=== PATIENT | male | born 1970 | race Caucasian/White ===

== ENCOUNTER 2017-05-13 11:19 | Inpatient (IN) | payer SELFPAY ==
[~2017-05-13] VITALS: Ht 167.6 cm; Wt 110.1 kg
[2017-05-13] MEDS ORDERED: DiphenhydrAMINE HCL 50 MG/ML VIAL IM ONE ×2 (11:30→18:45)
[2017-05-13] MEDS ORDERED: HALOPERIDOL LACTATE 5 MG/ML VIAL IM ONE ×2 (11:30→18:45)
[2017-05-13] MEDS ORDERED: LORazepam 2 MG/ML VIAL IM ONE ×3 (11:30→18:45)
[2017-05-13 12:27] LABS: GLUCOSE,POINT OF CARE 372 MG/DL (70-110)
[2017-05-13 13:04] LABS: BASOPHILS # (AUTO) 0.01 K/uL (0.00-0.20); BASOPHILS % (AUTO) 0.1 % (0.0-2.0); EOSINOPHILS # (AUTO) 0.02 K/uL (0.00-0.70); EOSINOPHILS % (AUTO) 0.09 % (1.0-6.0); HEMOGLOBIN 14.4 g/dL (13.5-17.5); LYMPHOCYTES # (AUTO) 0.7 K/uL (1.0-4.8); LYMPHOCYTES % (AUTO) 3.8 % (22.0-44.0); MEAN CORPUSCULAR HGB CONC 34.2 G/dL (31.0-37.0); MEAN CORPUSCULAR VOLUME 85 fL (80-100); MONOCYTES # (AUTO) 0.4 K/uL (0.1-1.0); MONOCYTES % (AUTO) 2.4 % (2.0-9.0); NEUTROPHILS # (AUTO) 16.6 K/uL (1.8-7.7); PLATELET COUNT (AUTO) 266 K/uL (150-450); RED BLOOD CELL COUNT(AUTO) 4.95 MIL/uL (4.50-5.90); RED CELL DISTRIBUTION WIDTH 14.1 % (11.5-14.5); WHITE BLOOD COUNT (AUTO) 17.7 K/uL (4.5-11.0)
[2017-05-13 13:05] LABS: NEUTROPHILS % (AUTO) 93.7 % (40.0-70.0)
[2017-05-13 13:11] LABS: ANION GAP 12 mmol/L (8-16); CALCIUM, TOTAL 8.9 mg/dL (8.8-10.5); CARBON DIOXIDE 23 mmol/L (22-29); CHLORIDE 100 mmol/L (98-107); CREATININE 1.07 mg/dL (0.60-1.30); GLOMERULAR FILTR. RATE CALC > 60 mL/min (>60); POTASSIUM 3.9 mmol/L (3.5-5.1); SODIUM SERUM 135 mmol/L (136-145); UREA NITROGEN, BLOOD 13 mg/dL (7-18)
[2017-05-13 13:17] LABS: ALANINE AMINOTRANSFERASE 28 U/L (12-78); ALBUMIN 3.5 g/dL (3.4-5.0); ASPARTATE AMINOTRANSFERASE 26 U/L (15-37); BILIRUBIN,TOTAL 0.9 mg/dL (0.1-1.0); TOTAL PROTEIN, SERUM 7.8 g/dL (6.4-8.2)
[2017-05-13] MEDS: ACETAMINOPHEN 325 MG TABLET PO ONE ×2 (13:53→14:00)
[2017-05-13 19:02] LABS: GLUCOSE,POINT OF CARE 244 MG/DL (70-110)
[2017-05-13 20:15] VITALS: BP 145/114
[2017-05-13] MEDS ORDERED: GLUCAGON,HUMAN RECOMBINANT 1 MG VIAL IM PRN (20:30)
[2017-05-13] MEDS ORDERED: PNEUMOCOCCAL VACCINE POLYVALENT 0.5 ML VIAL [PPSV23] IM ONE (21:00)
[2017-05-13] MEDS: CloNIDine HCL 0.1 MG TABLET PO PRN (21:03)
[2017-05-13] MEDS: INSULIN ASPART 100 UNITS/ML SQ PRN (21:04)
[2017-05-13 21:33] VITALS: BP 145/79
[2017-05-13 21:42] LABS: GLUCOSE COMMENT 1 Received Meds; GLUCOSE,POINT OF CARE 232 MG/DL (70-110)
[2017-05-14 06:32] LABS: GLUCOSE,POINT OF CARE 264 MG/DL (70-110)
[2017-05-14] MEDS: INSULIN ASPART 100 UNITS/ML SQ PRN ×4 (06:34→20:59)
[2017-05-14 06:55] VITALS: BP 164/90
[2017-05-14] MEDS: CloNIDine HCL 0.1 MG TABLET PO PRN ×2 (06:58→16:29)
[2017-05-14 08:00] VITALS: BP 141/84
[2017-05-14 11:07] LABS: GLUCOSE,POINT OF CARE 242 MG/DL (70-110)
[2017-05-14 16:28] VITALS: BP 158/99
[2017-05-14 17:30] VITALS: BP 157/95
[2017-05-14] MEDS ORDERED: AmLODIPine BESYLATE 5 MG TABLET PO ONE (19:30)
[2017-05-14] MEDS: RisperiDONE 0.5 MG TABLET PO SCH (20:30)
[2017-05-14 20:50] VITALS: BP 148/88
[2017-05-15 06:19] VITALS: BP 158/98
[2017-05-15] MEDS: CloNIDine HCL 0.1 MG TABLET PO PRN ×2 (06:31→16:56)
[2017-05-15] MEDS: INSULIN ASPART 100 UNITS/ML SQ PRN ×3 (06:34→16:57)
[2017-05-15 08:40] VITALS: BP 133/72
[2017-05-15 08:53] LABS: BASOPHILS % (AUTO) 0.6 % (0.0-2.0); EOSINOPHILS % (AUTO) 0.7 % (1.0-6.0); HEMATOCRIT 40.7 % (41-53); HEMOGLOBIN 13.9 g/dL (13.5-17.5); LYMPHOCYTES # (AUTO) 1.6 K/uL (1.0-4.8); LYMPHOCYTES % (AUTO) 18.5 % (22.0-44.0); MEAN CORPUSCULAR HEMOGLOBIN 29.5 pg (26.0-34.0); MEAN CORPUSCULAR HGB CONC 34.2 G/dL (31.0-37.0); MEAN CORPUSCULAR VOLUME 86 fL (80-100); MONOCYTES # (AUTO) 0.6 K/uL (0.1-1.0); NEUTROPHILS # (AUTO) 6.2 K/uL (1.8-7.7); NEUTROPHILS % (AUTO) 73.2 % (40.0-70.0); PLATELET COUNT (AUTO) 254 K/uL (150-450); RED BLOOD CELL COUNT(AUTO) 4.72 MIL/uL (4.50-5.90); RED CELL DISTRIBUTION WIDTH 14.2 % (11.5-14.5); WHITE BLOOD COUNT (AUTO) 8.5 K/uL (4.5-11.0)
[2017-05-15] MEDS ORDERED: LISINOPRIL 5 MG TABLET PO SCH (09:00)
[2017-05-15] MEDS ORDERED: LISINOPRIL 10 MG TABLET PO SCH (09:00)
[2017-05-15] MEDS: RisperiDONE 0.5 MG TABLET PO SCH ×2 (09:21→16:56)
[2017-05-15 09:34] LABS: ALANINE AMINOTRANSFERASE 36 U/L (12-78); ANION GAP 9 mmol/L (8-16); ASPARTATE AMINOTRANSFERASE 34 U/L (15-37); BILIRUBIN,TOTAL 0.8 mg/dL (0.1-1.0); CALCIUM, TOTAL 8.3 mg/dL (8.8-10.5); CARBON DIOXIDE 28 mmol/L (22-29); CHLORIDE 102 mmol/L (98-107); CHOL/HDL RATIO 4.3 (4.2-7.3); CREATININE 0.76 mg/dL (0.60-1.30); GLOMERULAR FILTR. RATE CALC > 60 mL/min (>60); POTASSIUM 3.4 mmol/L (3.5-5.1); SODIUM SERUM 139 mmol/L (136-145); TOTAL PROTEIN, SERUM 7.2 g/dL (6.4-8.2); UREA NITROGEN, BLOOD 7 mg/dL (7-18)
[2017-05-15 09:40] LABS: HEMOGLOBIN A1C 8.6 % (4.5-6.2)
[2017-05-15 09:56] LABS: GLUCOSE COMMENT 1 Received Meds; GLUCOSE,POINT OF CARE 262 MG/DL (70-110)
[2017-05-15 10:01] LABS: GLUCOSE COMMENT 1 Received Meds; GLUCOSE,POINT OF CARE 258 MG/DL (70-110)
[2017-05-15 10:12] LABS: GLUCOSE,POINT OF CARE 229 MG/DL (70-110)
[2017-05-15 11:17] LABS: GLUCOSE,POINT OF CARE 265 MG/DL (70-110)
[2017-05-15] MEDS ORDERED: POTASSIUM CHLORIDE 20 MEQ ER TABLET PO ONE (14:30)
[2017-05-15 16:58] VITALS: BP 151/93
[2017-05-15] MEDS ORDERED: MAGNESIUM OXIDE 400 MG TABLET PO SCH (17:00)
[2017-05-15] MEDS ORDERED: MetFORMIN HCL 500 MG TABLET PO SCH (17:00)
[2017-05-15 17:02] LABS: GLUCOSE COMMENT 1 Received Meds; GLUCOSE,POINT OF CARE 256 MG/DL (70-110)
[2017-05-15 17:50] VITALS: BP 148/88
[2017-05-15] MEDS ORDERED: METF1000 PO (17:50)
[2017-05-15] MEDS ORDERED: RISP0.252 PO (18:21)
[2017-05-15] MEDS ORDERED: MAGN400T25 PO (18:22)
[2017-05-15] MEDS ORDERED: LISI-661 PO (18:23)
[2017-05-16 07:55] LABS: HEPATITIS Bs ANTIGEN SCREEN P Negative (Negative); HEPATITIS C AB SCREEN <0.1 s/co ratio (0.0-0.9)
== END 2017-05-15 21:15 | disposition home or self-care (01) | DRG 885 ==
LOC: EMS 11:20 → B3A 18:39
PROVIDERS: ADMIT Psychiatry & Neurology Psychiatry; ATTEND Psychiatry & Neurology Psychiatry
DX: F29 Unspecified psychosis not due to a substance or known physiological condition (principal); E11.65 Type 2 diabetes mellitus with hyperglycemia; I10 Essential (primary) hypertension; F15.20 Other stimulant dependence, uncomplicated; D72.829 Elevated white blood cell count, unspecified; Z59.0 Homelessness; Z82.49 Family history of ischemic heart disease and other diseases of the circulatory system; Z28.21 Immunization not carried out because of patient refusal
CPT/HCPCS: 80074; 82306; 82607; 82746; 82962; 83036; 83735; 84439; 90471; 93005; 96372; 99291; G0480; J1200; J1630; J2060